=== PATIENT | male | born 1950 | race Native Hawaiian/Other Pacific Islander ===

== ENCOUNTER 2017-09-20 13:07 | Outpatient (CLI) | payer OTHER ==
[~2017-09-20 13:07] MED LIST: ALPR0.5T24 PO; CALC667T2 PO; CLONIDINE0.1 MG PO; GABA300C2 PO; METO50TA27 PO; NEPRO PO; PAXIL20 MG PO; PROTONIX20 MG PO; SIMV20TA2 PO; TYLENOL325 MG PO
== END 2017-09-20 22:12 | disposition home or self-care (01) ==
LOC: LAB 13:07
DX: E83.51 Hypocalcemia (principal)
CPT/HCPCS: 82310; 84100

== ENCOUNTER 2017-10-09 13:52 | Outpatient (CLI) | payer OTHER | END 2017-10-09 21:33 | disposition home or self-care (01) | LOC: LAB 13:52 | DX: D64.89 Other specified anemias (principal) | CPT/HCPCS: 85018 ==

== ENCOUNTER 2017-11-01 13:44 | Outpatient (CLI) | payer OTHER | END 2017-11-01 22:27 | disposition home or self-care (01) | LOC: LAB 13:44 | DX: D64.89 Other specified anemias (principal) | CPT/HCPCS: 85014; 85018 ==

== ENCOUNTER 2018-06-14 19:50 | Outpatient (CLI) | payer OTHER ==
[2018-06-14] MEDS ORDERED: RENVELA800 MG PO (21:50)
== END 2018-06-14 20:09 | disposition short-term general hospital (02) ==
LOC: AMB 19:50
DX: R41.0 Disorientation, unspecified (principal); R44.2 Other hallucinations
CPT/HCPCS: A0425; A0429

== ENCOUNTER 2018-06-14 20:16 | Inpatient (IN) | payer OTHER ==
[~2018-06-14] VITALS: Ht 188 cm; Wt 80.3 kg
[2018-06-14 20:16] VITALS: BP 154/57; TEMP 97.1
[2018-06-14 20:53] LABS: PLATELET COUNT 119 K/uL (142-355)
[2018-06-14 21:05] LABS: POTASSIUM 4.7 mmol/L (3.6-5.2)
[2018-06-14 21:30] VITALS: BP 160/58
[2018-06-14] MEDS ORDERED: RENVELA800 MG PO (21:50)
[2018-06-14 22:00] VITALS: BP 185/59
[2018-06-14 22:27] VITALS: BP 153/55; TEMP 97
[2018-06-14 23:44] VITALS: BP 123/52; TEMP 98.2; Ht 188 cm; Wt 80.3 kg
[2018-06-15 00:16] VITALS: BP 123/52; TEMP 98.2
[2018-06-15 04:08] VITALS: BP 130/50; TEMP 98.2
[2018-06-15 05:51] LABS: PLATELET COUNT 106 K/uL (142-355)
[2018-06-15 06:47] LABS: POTASSIUM 4.2 mmol/L (3.6-5.2)
[2018-06-15 08:05] VITALS: BP 127/70; TEMP 98.4
--- NOTE | 2018-06-15 10:00 | NUR ---
PT TO DIALYSIS VIA BED PER THAIS HYMAN RN IN STABLE [place].
[2018-06-15 16:09] VITALS: BP 141/53; TEMP 97.6
[2018-06-15 19:59] VITALS: BP 149/62; TEMP 98.7
[2018-06-15 23:40] VITALS: BP 100/48; TEMP 97.6
[2018-06-16 04:19] VITALS: BP 131/45; TEMP 98.4
[2018-06-16 08:05] VITALS: BP 126/73; TEMP 98
[2018-06-16 12:04] VITALS: BP 135/57; TEMP 97.5
[2018-06-16 16:00] VITALS: BP 142/57; TEMP 98
[2018-06-16 19:48] VITALS: BP 136/54; TEMP 97.9
[2018-06-17] VITALS: BP 144/51; TEMP 98.5
[2018-06-17 03:50] VITALS: BP 112/51; TEMP 98.4
[2018-06-17 08:05] VITALS: BP 145/61; TEMP 97.8
[2018-06-17 12:00] VITALS: BP 120/60; TEMP 97.8
[2018-06-17 16:14] VITALS: BP 149/65; TEMP 98.6
[2018-06-17 20:00] VITALS: BP 141/53; TEMP 98
[2018-06-18] VITALS: BP 144/58; TEMP 98.7
[2018-06-18 04:00] VITALS: BP 139/53; TEMP 98.4
[2018-06-18 05:41] LABS: PLATELET COUNT 121 K/uL (142-355)
[2018-06-18 05:46] LABS: POTASSIUM 5.3 mmol/L (3.6-5.2)
[2018-06-18 08:00] VITALS: BP 142/30; TEMP 96.7
--- NOTE | 2018-06-18 10:30 | NUR ---
Pt. TO DIALYSIS VIA BED.
--- NOTE | 2018-06-18 13:00 | NUR ---
[facility] CALLED WITH BED. PT. IN DIALYSIS.
--- NOTE | 2018-06-18 13:50 | NUR ---
Pt. RETURNED TO ROOM VIA BED. Pt. WILL BE TRANSFERRED TO [facility]. DUE TO XRAY RESULT L PLEURAL EFFUSION.
[2018-06-18 16:00] VITALS: BP 136/32; TEMP 96.6
--- NOTE | 2018-06-18 17:20 | NUR ---
REP[ORT CALLED TO MOLLY CAMPOS RN.
--- NOTE | 2018-06-18 17:30 | NUR ---
Pt. TRANSFERRED VIA [facility]
== END 2018-06-18 17:30 | disposition short-term general hospital (02) | DRG 193 ==
LOC: ED 20:16 → MED/SURG 22:00
PROVIDERS: Family Medicine; ADMIT Internal Medicine
DX: J18.8 Other pneumonia, unspecified organism (principal); N18.6 End stage renal disease; I12.0 Hypertensive chronic kidney disease with stage 5 chronic kidney disease or end stage renal disease; J90 Pleural effusion, not elsewhere classified; Z99.2 Dependence on renal dialysis; Z89.512 Acquired absence of left leg below knee; D64.89 Other specified anemias; M54.5 Low back pain; R55 Syncope and collapse; N63.20 Unspecified lump in the left breast, unspecified quadrant
CPT/HCPCS: 36415; 80053; 82550; 82607; 82728; 82746; 82947; 83540; 83605; 83880; 84484; 85027; 85379; 86318; 87040; 87077; 87185; 87186; 87205; 93005; 93225; 96365; 96366; 96374; 96375; 99284; J0456; J1644; J1650; J2543; J3490; Q9963